=== PATIENT | male | born 1960 | race Caucasian/White ===

== ENCOUNTER → 2020-03-11 12:50 | Outpatient (BNVA) | payer OTHER, SELFPAY | PROVIDERS: Family Provider Family Medicine; PCP Family Medicine; Visit Provider Urology | DX: N48.6 Induration penis plastica (principal) | CPT/HCPCS: 81001 ==

== ENCOUNTER → 2020-12-16 14:41 | Outpatient (BNVA) | payer OTHER, SELFPAY | PROVIDERS: Family Provider Family Medicine; PCP Family Medicine; Visit Provider Urology | DX: N52.1 Erectile dysfunction due to diseases classified elsewhere (principal); N48.6 Induration penis plastica; F32.9 Major depressive disorder, single episode, unspecified | CPT/HCPCS: 81003 ==

== ENCOUNTER → 2021-08-25 13:12 | Outpatient (BNVA) | payer OTHER, SELFPAY | PROVIDERS: Family Provider Family Medicine; PCP Family Medicine; Referring Provider Family Medicine; Visit Provider Orthopaedic Surgery | DX: M54.2 Cervicalgia (principal) | CPT/HCPCS: 72050 ==

== ENCOUNTER → 2022-01-06 10:11 | Outpatient (BNVA) | payer OTHER, SELFPAY | PROVIDERS: Family Provider Family Medicine; PCP Family Medicine; Visit Provider Family Medicine | DX: M50.90 Cervical disc disorder, unspecified, unspecified cervical region (principal); R03.0 Elevated blood-pressure reading, without diagnosis of hypertension; E11.8 Type 2 diabetes mellitus with unspecified complications | CPT/HCPCS: 80053; 80061; 83036 ==

== ENCOUNTER → 2022-08-19 08:38 | Outpatient (BNVA) | payer OTHER, SELFPAY | PROVIDERS: Family Provider Family Medicine; PCP Family Medicine; Visit Provider Family Medicine | DX: E11.9 Type 2 diabetes mellitus without complications (principal); M54.9 Dorsalgia, unspecified; G89.29 Other chronic pain; M47.22 Other spondylosis with radiculopathy, cervical region; J06.9 Acute upper respiratory infection, unspecified; F32.9 Major depressive disorder, single episode, unspecified; N48.6 Induration penis plastica; N52.9 Male erectile dysfunction, unspecified | CPT/HCPCS: 80053; 80061; 83036 ==

== ENCOUNTER 2022-11-03 08:59 | Outpatient (CLI) | payer OTHER, SELFPAY ==
--- NOTE | 2022-11-03 09:30 | MR_ITS ---
WS: [id number] MRI LUMBAR SPINE NONCONTRAST TECHNIQUE: Sagittal T1, T2 and STIR imaging. Axial T1 and T2 imaging. CLINICAL INFORMATION: worsening lumbar back pain/ sciatica COMPARISON: None. FINDINGS: Mild lumbar curve. No acute compression. Disc bulging worse at L4-L5 and L5-S1. Disc space narrowing worse L5-S1. Tarlov cysts in the sacrum. L1-L2: Normal. L2-L3: Mild annular bulging. Slight effacement of ventral thecal sac with encroachment traversing L3 nerve roots. Mild facet arthropathy. Foramen are patent. L3-L4: Mild annular bulging. Mild central canal stenosis. Slight impingement traversing L4 nerve root s bilaterally. Moderate facet arthropathy. Mild RIGHT greater than LEFT foraminal narrowing. Small RI GHT foraminal protrusion slightly impinges the exiting RIGHT L3 nerve root. L4-L5: Disc bulging in combination with facet arthropathy ligamentum flavum hypertrophy results in se tari central canal stenosis. Central disc protrusion with slight inferior extension of disc material. Impingement traversing L5 nerve roots. Mild RIGHT greater than LEFT foraminal narrowing. L5-S1: Disc osteophyte complex with endplate ridging. Impingement traversing RIGHT greater than LEFT S1 nerve roots. Mild facet arthropathy. Mild central canal stenosis. Mild RIGHT greater than LEFT for aminal narrowing. Tarlov cysts in the sacrum. Small central protrusions C6-C7 and C7-T1 with mild central canal stenosis. This can be followed up w ith cervical spine MRI. Visualized pelvic bony structures: Normal. Paravertebral soft tissues: Normal. MR/MR lumbar spine wo con* [id number] IMPRESSION: 1. Mild lumbar curve. No acute compression. 2. Central disc protrusion L4-L5 with severe central canal stenosis. Impingeme nt traversing L5 nerve roots bilaterally. Slight inferior extension of disc mat erial. 3. Mild central canal stenosis L3-L4 with narrowing of the subarticular recess bilaterally. 4. Disc bulging L5-S1 with osteophytic ridging. Slight impingement on traversi ng S1 nerve roots. 5. Small RIGHT foraminal protrusion L3-L4 with impingement on the exiting RIGH T L3 nerve root. 6. Mild bilateral L4-L5 foraminal narrowing RIGHT greater than LEFT. 7. Mild RIGHT L5-S1 foraminal narrowing. 8. Mild facet arthropathy L3-L5. 9. Evidence of prior remote appearing laminectomies L4-L5 and probably LEFT L5 -S1
== END 2022-11-03 09:00 | disposition home or self-care (01) ==
PROVIDERS: Family Provider Family Medicine; PCP Family Medicine; Visit Provider Family Medicine
DX: G89.29 Other chronic pain (principal); M51.26 Other intervertebral disc displacement, lumbar region; M48.061 Spinal stenosis, lumbar region without neurogenic claudication; M51.36 Other intervertebral disc degeneration, lumbar region
CPT/HCPCS: 72148

== ENCOUNTER → 2022-11-16 09:10 | Outpatient (BNVA) | payer OTHER, SELFPAY | PROVIDERS: Family Provider Family Medicine; PCP Family Medicine; Visit Provider Family Medicine | DX: M48.061 Spinal stenosis, lumbar region without neurogenic claudication (principal); E11.9 Type 2 diabetes mellitus without complications | CPT/HCPCS: 80053; 80061; 83036 ==

== ENCOUNTER → 2023-05-24 12:31 | Outpatient (BNVA) | payer OTHER, SELFPAY | PROVIDERS: Family Provider Family Medicine; PCP Family Medicine; Visit Provider Nurse Practitioner Family | DX: J06.9 Acute upper respiratory infection, unspecified (principal) | CPT/HCPCS: 87486; 87581; 87633 ==

== ENCOUNTER → 2023-06-07 14:34 | Outpatient (BNVA) | payer OTHER, SELFPAY | PROVIDERS: Family Provider Family Medicine; PCP Family Medicine; Visit Provider Family Medicine | DX: E11.9 Type 2 diabetes mellitus without complications (principal); M48.061 Spinal stenosis, lumbar region without neurogenic claudication; F32.9 Major depressive disorder, single episode, unspecified | CPT/HCPCS: 80053; 83036 ==

== ENCOUNTER → 2023-09-06 09:21 | Outpatient (BNVA) | payer OTHER, SELFPAY | PROVIDERS: Family Provider Family Medicine; PCP Family Medicine; Visit Provider Family Medicine | DX: E11.9 Type 2 diabetes mellitus without complications (principal); M48.061 Spinal stenosis, lumbar region without neurogenic claudication | CPT/HCPCS: 80053; 80061; 83036; 85025 ==

== ENCOUNTER → 2024-06-19 09:48 | Outpatient (BNVA) | payer OTHER, SELFPAY | PROVIDERS: Family Provider Family Medicine; PCP Family Medicine; Visit Provider Family Medicine | DX: E11.9 Type 2 diabetes mellitus without complications (principal); M54.9 Dorsalgia, unspecified; G89.29 Other chronic pain; I10 Essential (primary) hypertension | CPT/HCPCS: 80053; 80061; 83036 ==

== ENCOUNTER 2024-09-01 06:30 | Outpatient (RCR) | payer OTHER, SELFPAY | END 2024-10-01 23:59 | disposition home or self-care (01) | LOC: APT 06:30 | PROVIDERS: Visit Provider Nurse Practitioner | DX: M54.12 Radiculopathy, cervical region (principal); M50.30 Other cervical disc degeneration, unspecified cervical region; M54.2 Cervicalgia; G62.9 Polyneuropathy, unspecified | CPT/HCPCS: 97110; 97161 ==

== ENCOUNTER → 2024-09-17 13:32 | Outpatient (BNVA) | payer OTHER, SELFPAY | PROVIDERS: Family Provider Family Medicine; PCP Family Medicine; Visit Provider Family Medicine | DX: E11.9 Type 2 diabetes mellitus without complications (principal) | CPT/HCPCS: 83036 ==

== ENCOUNTER 2024-10-02 05:00 | Outpatient (RCR) | payer OTHER, SELFPAY | END 2024-10-31 23:59 | disposition home or self-care (01) | LOC: APT 05:00 | PROVIDERS: Visit Provider Nurse Practitioner | DX: M54.12 Radiculopathy, cervical region (principal); M50.30 Other cervical disc degeneration, unspecified cervical region; G62.9 Polyneuropathy, unspecified; M54.2 Cervicalgia | CPT/HCPCS: 97110; 97112; 97530 ==

== ENCOUNTER 2024-11-21 06:49 | Outpatient (CLI) | payer OTHER, SELFPAY ==
--- NOTE | 2024-11-21 07:09 | MR_ITS ---
WS: [id number] MRI CERVICAL SPINE NONCONTRAST HISTORY: DEGENERATIVE DISC DISEASE COMPARISON: 07/21/2021 Technique: Multiplanar, multisequence noncontrast imaging of the cervical spine. Mild straightening of the normal cervical lordosis. No acute fracture or marrow edema. Signal within the cervical cord is normal. Visualized posterior fossa is unremarkable. Craniocervical junction, C1 and C2 relationship, odontoid process and soft tissues are normal. C2-C3: Osteophytic ridging with a broad-based central disc protrusion and mild facet arthritis. Mild effacement of ventral CSF but no stenosis. C3-C4: Mild osteophytic ridging. Mild facet arthritis. Mild central and bilateral foraminal stenosis. Slightly greater stenosis on the LEFT predominantly due to vertebral osteophytes. C4-C5: Diffuse osteophytic ridging with mild annular disc bulging and facet arthritis. Mild central and bilateral foraminal stenosis. C5-C6: Mild osteophytic ridging. Mild effacement of ventral CSF and facet joint arthritis. Mild central stenosis with moderate bilateral foraminal stenosis. Foraminal stenosis due to combination of osteophytosis and facet disease. C6-C7: Diffuse annular disc bulging with osteophytic ridging. Larger osteophyte in the LEFT foramen. Effacement of the ventral CSF. Moderate to severe central and bilateral foraminal stenosis. C7-T1: Very mild facet arthritis and foraminal narrowing. Paraspinal soft tissue are normal. MR/MR cervical spin wo con* [id number] IMPRESSION: 1. Mild cervical spondylosis with no acute fracture. 2. Multiple disc protrusions and osteophytosis noted on a prior study from 2. Some of the disc protrusions have decreased in size, most specifically at C4 -5 and C6-7. 3. No cord edema. 4. C6-7: Moderate to severe central and bilateral foraminal stenosis due to di sc and osteophyte disease. 5. C5-6: Moderate bilateral foraminal stenosis with mild central stenosis. 6. C3-4: Mild central and bilateral foraminal stenosis greater on the LEFT. 7. C4-5: Mild central and bilateral foraminal stenosis.
== END 2024-11-21 06:50 | disposition home or self-care (01) ==
PROVIDERS: PCP Family Medicine; Visit Provider Nurse Practitioner
DX: M54.12 Radiculopathy, cervical region (principal); M50.321 Other cervical disc degeneration at C4-C5 level; G62.9 Polyneuropathy, unspecified; M47.892 Other spondylosis, cervical region; M48.02 Spinal stenosis, cervical region; M25.78 Osteophyte, vertebrae; M50.21 Other cervical disc displacement, high cervical region; M50.323 Other cervical disc degeneration at C6-C7 level; M47.893 Other spondylosis, cervicothoracic region
CPT/HCPCS: 72141

== ENCOUNTER 2024-11-27 08:43 | Outpatient (CLI) | payer OTHER, SELFPAY ==
--- NOTE | 2024-11-27 08:48 | CT_ITS ---
WS: [email or web address] CT CERVICAL SPINE HISTORY: CERVICAL RADICULOPATHY/DEGENERATIVE DISC DZ TECHNIQUE: Contiguous 2.0 mm axial imaging performed through the entire cervical spine. Sagittal and coronal reformats also performed. All CT scans at [facility] use at least one of these dose optimization techniques: automated exposure control; mA and/or kV adjustment per patient size (includes targeted exams where dose is matched to clinical indication); or iterative reconstruction. DLP: 413.17 mGy.cm COMPARISON: 11/21/2024 Normal cervical alignment. Osteophytosis from the vertebral bodies. Facet joints are normally aligned. Craniocervical junction is normal. Lateral masses of C1 and C2 are aligned. C2-C3: Small central disc protrusion and mild foraminal stenosis. C3-C4: Mild osteophytic ridging encroaching upon the ventral thecal sac. Very mild central and foraminal stenosis, LEFT greater than RIGHT. C4-C5: Osteophytic ridging and mild facet arthritis. Mild central stenosis. C5-C6: Mild osteophytic ridging and facet arthritis. Mild central and foraminal stenosis. C6-C7: Mild osteophytic ridging. Mild central and foraminal stenosis. There is a small central disc protrusion. Disc protrusion extending greatest to the LEFT was better seen on the recent MRI. C7-T1: Mild bilateral foraminal stenosis. Paravertebral soft tissues are unremarkable. No adenopathy. Lung apices are clear with paraseptal emphysema. CT/CT cervical spin wo con* [id number] IMPRESSION: 1. No acute cervical spine fracture. 2. Small central disc protrusion at C2-3 and mild foraminal stenosis. 3. Disc protrusion noted at C6-7 was better visualized on a prior recent MRI. There is at least mild central and bilateral foraminal stenosis at C6-7. 4. Multilevel mild foraminal stenosis from C3-4 through C7-T1.
--- NOTE | 2024-11-27 09:10 | XR_ITS ---
WS: [email or web address] DEXA (DUAL ENERGY X-RAY ABSORPTIOMETRY) Bone mineral density was performed using a [employer] machine. HISTORY: DEGENERATIVE DISC DZ/ACUTE NECK PAIN/ASSESS BONE HEALTH COMPARISON: None available. Lumbar spine BMD (L1-L4): 1.356 T score: 1.0 Z score: 0.6 Total hip BMD: Left: 1.331 g/cm2. T score: 1.6 Z score: 1.7 Right: 1.320 g/cm2. T score: 1.5 Z score: 1.6 10 year probability of a major osteoporotic fracture is 3.5%. XR/XR DEXA axial skeleton* [id number] IMPRESSION: NORMAL BONE MINERAL DENSITY based upon the WHO classification for females.
== END 2024-11-27 08:44 | disposition home or self-care (01) ==
PROVIDERS: PCP Family Medicine; Visit Provider Nurse Practitioner
DX: M54.12 Radiculopathy, cervical region (principal); G62.9 Polyneuropathy, unspecified; M50.21 Other cervical disc displacement, high cervical region; M48.02 Spinal stenosis, cervical region; M50.223 Other cervical disc displacement at C6-C7 level; M48.03 Spinal stenosis, cervicothoracic region; M25.78 Osteophyte, vertebrae; R93.7 Abnormal findings on diagnostic imaging of other parts of musculoskeletal system; M47.892 Other spondylosis, cervical region; J43.8 Other emphysema
CPT/HCPCS: 72125; 77080

== ENCOUNTER → 2024-12-18 08:41 | Outpatient (BNVA) | payer OTHER, SELFPAY | PROVIDERS: PCP Family Medicine; Visit Provider Family Medicine | DX: I10 Essential (primary) hypertension (principal); E11.9 Type 2 diabetes mellitus without complications; M54.9 Dorsalgia, unspecified; G89.29 Other chronic pain; M48.061 Spinal stenosis, lumbar region without neurogenic claudication | CPT/HCPCS: 80053; 80061; 83036; 84550; 85025 ==

== ENCOUNTER → 2025-03-20 09:57 | Outpatient (BNVA) | payer OTHER, SELFPAY | PROVIDERS: PCP Family Medicine; Visit Provider Family Medicine | DX: I10 Essential (primary) hypertension (principal); E11.9 Type 2 diabetes mellitus without complications; M47.22 Other spondylosis with radiculopathy, cervical region | CPT/HCPCS: 80053; 80061; 83036 ==

== ENCOUNTER → 2025-07-01 11:57 | Outpatient (BNVA) | payer OTHER, SELFPAY | PROVIDERS: PCP Family Medicine; Visit Provider Nurse Practitioner Family | DX: J06.9 Acute upper respiratory infection, unspecified (principal) | CPT/HCPCS: 87400; 87426 ==